=== PATIENT | male | born 1955 | race Caucasian/White ===

== ENCOUNTER → 2017-07-02 12:27 | Outpatient (CLI) | payer MEDICARE, SELFPAY ==
--- NOTE | 2017-07-02 12:29 | CT_ITS ---
STUDY: CT LEFT SHOULDER REASON FOR EXAM: Male, 62 years old. Chronic left shoulder pain. RADIATION DOSAGE (If Supplied By Facility): CTDIvol = ( 13.78 ) mGy, DLP = ( 269.48 ) mGycm TECHNIQUE: The patient was scanned in a multi detector CT scanner. High resolution transaxial imaging was performed following dilute intra-articular contrast material injection. Sagittal and coronal images were reconstructed. Individualized dose optimization techniques were used for this CT. COMPARISON: Comparison is made with prior examination dated March 28, 2016. FINDINGS: There is a marked degree of degenerative osteoarthritis of the glenohumeral joint with degenerative spurring especially along the inferior medial aspect of the humerus as well as the inferior aspect of the glenoid. 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 This is essentially unchanged. There is evidence of full thickness tear of the rotator cuff with contrast seen in the surrounding soft tissues. Normal coracoid process. Normal visualized muscles and soft tissue structures. CT/Extremity Upper WITH Contrast IMPRESSION: Stable appearance of the glenohumeral joint with significant degenerative changes and subchondral geodes. Evidence of full thickness tear of the rotator cuff. Electronically Signed: Case Moeller MD at 13:45 EDT Tel [phone], Service support ,
--- NOTE | 2017-07-02 12:33 | CT_ITS ---
STUDY: CT LEFT SHOULDER REASON FOR EXAM: Male, 62 years old. Chronic left shoulder pain. RADIATION DOSAGE (If Supplied By Facility): CTDIvol = ( 13.78 ) mGy, DLP = ( 269.48 ) mGycm TECHNIQUE: The patient was scanned in a multi detector CT scanner. High resolution transaxial imaging was performed following dilute intra-articular contrast material injection. Sagittal and coronal images were reconstructed. Individualized dose optimization techniques were used for this CT. COMPARISON: Comparison is made with prior examination dated March 28, 2016. FINDINGS: There is a marked degree of degenerative osteoarthritis of the glenohumeral joint with degenerative spurring especially along the inferior medial aspect of the humerus as well as the inferior aspect of the glenoid. 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 This is essentially unchanged. There is evidence of full thickness tear of the rotator cuff with contrast seen in the surrounding soft tissues. Normal coracoid process. Normal visualized muscles and soft tissue structures. CT/Coronals Sag Multi Obl 3-D Rec IMPRESSION: Stable appearance of the glenohumeral joint with significant degenerative changes and subchondral geodes. Evidence of full thickness tear of the rotator cuff. Electronically Signed: Case Moeller MD at 13:45 EDT Tel [phone], Service support ,
--- NOTE | 2017-07-02 12:40 | RAD_ITS ---
CLINICAL HISTORY: Male, 62 years old. Chronic left shoulder pain. PROCEDURE: ARTHROGRAM - LEFT SHOULDER CONSENT: The procedure as well as the benefits and possible complications including infection and bleeding were explained to the patient. Informed consent was obtained. FLUOROSCOPY TIME (if supplied): (1:06) minutes/seconds Injection Information: 10 cc of dilute MRI contrast. Number of images obtained: 3 TECHNIQUE: (All elements of maximal sterile barrier technique followed, including US elements as applicable) The patient was in the supine position. The overlying skin was prepped and draped in the usual sterile fashion. Following local anesthetic application and under direct fluoroscopic guidance, a 22-gauge spinal needle was placed into the left shoulder joint. 2 cc of Isovue 300 was injected for confirmation. Following this, 10 cc of dilute MRI contrast was injected. There is deformity of the humeral head with a degenerative spur formation. Marked degree of osteoarthritis. RAD/Arthrogram Shoulder IMPRESSION: Left shoulder arthrogram for CT scan examination. The patient tolerated the procedure well. Electronically Signed: Case Moeller MD at 14:57 EDT Tel [phone], Service support ,
[2017-07-02 14:52] LABS: Hematocrit 40.1 % (40-54); Hemoglobin 14.4 g/dl (13.0-16.5); Mean Corp Hgb Conc 35.9 g/gl (32-36); Mean Corpuscular Volume 91.8 fL (80-94); Mean Platelet Vol. 9.7 fl (6.2-12.0); Platelet Count 205 K/mm3 (150-450); RBC Distribution Width SD 39.8 fl (35.1-43.9); Red Blood Count 4.37 M/mm3 (4.6-6.2); White Blood Count 6.3 K/mm3 (4.4-11.0)
[2017-07-02 14:53] LABS: Scan Indicated on CBC? Y/N NO
[2017-07-02 15:17] LABS: Valproic Acid (Depakene) Level 105 ug/mL (50-100)
[2017-07-02 15:25] LABS: AST(SGOT) 43 U/L (15-37); Alanine Aminotransfer ALT/SGPT 19 U/L (16-61); Albumin, Serum 3.6 g/dL (3.2-5.0); Alkaline Phosphatase 99 U/L (45-117); Anion Gap 8 (5-15); BUN 11 mg/dL (7-18); BUN/Creat Ratio 12.6 RATIO (10-20); Calcium,Total 9.1 mg/dL (8.5-10.1); Chloride 96 mmol/L (98-107); Creatinine, Serum 0.87 mg/dL (0.70-1.30); EST Glomerular Filtration Rate 94 mL/min (>60); Est Glom Filt Rate - Afr Amer 113 mL/min (>60); Globulin 3.5 g/dL (2.2-4.2); Glucose 84 mg/dL (74-106); Potassium 4.4 mmol/L (3.5-5.1); Protein, Total 7.1 g/dL (6.4-8.2); Sodium Level 129 mmol/L (136-145); Thyroid Stim Hormone (TSH) 0.29 uIU/mL (0.358-3.74)
== END ==
PROVIDERS: Psychiatry & Neurology Psychiatry; Family Provider Family Medicine; PCP Family Medicine; Visit Provider Orthopaedic Surgery
DX: M19.012 Primary osteoarthritis, left shoulder (principal); Z79.899 Other long term (current) drug therapy
CPT/HCPCS: 23350; 36415; 73040; 73201; 76377; 80053; 80164; 84443; 85027; A9577; Q9967

== ENCOUNTER 2017-07-03 15:43 | Emergency (ER) | payer MEDICARE, SELFPAY ==
[2017-07-03 15:46] VITALS: BP 146/102; PULSE 88; RESP 16; TEMP 36.6; O2SAT 98; BMI 27.0
--- NOTE | 2017-07-03 15:57 | EKG12_ITS ---
Test Reason : MEDICAL CLEARANCE Blood Pressure : / mmHG Vent. Rate : 082 BPM Atrial Rate : 082 BPM P-R Int : 156 ms QRS Dur : 098 ms QT Int : 360 ms P-R-T Axes : 038 -16 029 degrees QTc Int : 420 ms Normal sinus rhythm Normal ECG Confirmed by JUAN MORRIS, LULY ([id number]), editorial clerk MEGA SALVADOR ([id number]) on 07/07/2017 2:16:31 PM Referred By: Matt Romero Confirmed By:LULY MARTINEZ MD
--- NOTE | 2017-07-03 15:58 | ED.VISSUMM ---
- ER Visit Summary Date of Service: 07/03/17 Chief Complaint: Suicidal thoughts History of Present Illness: The patient is a 62 M presents to the emergency department with suicidal thoughts. Patient has a history of depression and prior traumatic brain injury. He currently resides in a penitentiary. He states that 1 of the staff members has been telling him frequently but no one else there likes him. They have been isolating him from the group. He states this is making him depressed. He states I just want to put a gun in my mouth and pull the trigger. Patient does have long-standing history of depression. He has been hospitalized for both suicidal and homicidal thoughts before. He denies any other current systemic symptoms. He denies any drug or alcohol use. Physical Examination: Vital signs reviewed General: Well-nourished, well-developed Head: Normocephalic, atraumatic Eyes: Pupils equal and reactive, extraocular muscles intact Neck, supple, no lymphadenopathy Heart: Regular rate and rhythm Respiratory: No distress, clear bilaterally Abdomen: Soft, nontender, nondistended, no peritoneal signs Back: Nontender Extremities: Nontender, no edema, no cords Skin: Normal color no rash Neuro: Alert and oriented, no focal or lateralizing deficits Psychiatric: Poor judgment, poor insight, suicidal thoughts, no delusions or hallucinations Test Results: [] Emergency Department Course and Treatment: The patient was compliant on arrival. He did not require any medications. Screening labs are obtained. His Depakote level is mildly supratherapeutic, but he has no symptoms of Depakote toxicity. Labs are obtained and are unremarkable. There is no evidence of intoxication. The patient will undergo crisis evaluation because of a suicidal ideation. Disposition is currently pending. Treatment Plan: [] Disposition: Per crisis Impression: 1. Suicidal ideation This note was generated with [employer] dictation software. It may contain incorrect words, spelling, and punctuation that were not noted in review of the chart prior to signing ED Disposition - Plan for ED Patient: Chief Complaint: Suicidal Referrals: Gume Llanes MD [Primary Care Provider] -
--- NOTE | 2017-07-03 16:27 | ED.RN ---
PT BELONGS. GLASSES ON. UNDERWEAR ON. BEIGE PANTS ONE ANKLE HEIGHT BOOT FOR LT FOOT. ONE SLIPPER FOR RT FOOT. BUTTON UP SHIRT, YELLOW WITH MULTIPLE COLORS. WHITE REESE. WHITE SOCKS SILVER WATCH BROWN BELT.
[2017-07-03 16:48] LABS: Anion Gap 9 (5-15); BUN 8 mg/dL (7-18); BUN/Creat Ratio 11.3 RATIO (10-20); Calcium,Total 8.9 mg/dL (8.5-10.1); Chloride 97 mmol/L (98-107); EST Glomerular Filtration Rate 120 mL/min (>60); Est Glom Filt Rate - Afr Amer 145 mL/min (>60); Estimated Creatinine Clearance 115.04 ml/min; Glucose 83 mg/dL (74-106); Potassium 4.2 mmol/L (3.5-5.1); Sodium Level 130 mmol/L (136-145)
[2017-07-03 16:58] LABS: Absolute Lymphocyte Count 1.36 X10^3/ul (0.83-4.51); Absolute Neutrophil Count 3.7 X10^3/uL (2.0-7.7); Basophil# 0.03 X10^3/uL; Basophil% 0.5 % (0-1); Eosinophil# 0.08 X10^3/uL; Eosinophils% 1.3 % (0-5); Hematocrit 40.5 % (40-54); Hemoglobin 14.1 g/dl (13.0-16.5); Lymphocyte # 1.36 X10^3/ul (4.0); Lymphocyte % 22.4 % (19-41); Mean Corp Hgb Conc 34.8 g/gl (32-36); Mean Corpuscular Hgb 31.7 pg (27.0-32.0); Mean Platelet Vol. 9.3 fl (6.2-12.0); Monocyte# 0.84 X10^3/uL; Monocyte% 13.9 % (0-10); Neutrophil # 3.74 X10^3/uL (2.7-7.7); Neutrophil % 61.7 % (47-70); Platelet Count 179 K/mm3 (150-450); RBC Distribution Width CV 12.2 % (11.6-14.6); RBC Distribution Width SD 41.3 fl (35.1-43.9); Red Blood Count 4.45 M/mm3 (4.6-6.2); White Blood Count 6.1 K/mm3 (4.4-11.0)
[2017-07-03 17:04] LABS: Alcohol, Blood (Medical)-Serum < 3.0 mg/dL; Valproic Acid (Depakene) Level 110 ug/mL (50-100)
[2017-07-03 17:18] LABS: POSITIVE COUNT NO; POSITIVE DIFFERENTIAL NO; POSITIVE MORPHOLOGY NO
[2017-07-03 17:43] VITALS: RESP 16
[2017-07-03 17:52] LABS: Amphetamine Urine VISTA NEGATIVE (<1000 ng/mL); Barbiturate Urine VISTA NEGATIVE (< 200 ng/mL); Benzodiazepine Urine VISTA NEGATIVE (< 200 ng/mL); Cocaine Urine VISTA NEGATIVE (< 300 ng/mL); Ecstacy Urine VISTA NEGATIVE (< 500 ng/mL); Methadone Urine VISTA NEGATIVE (< 300 ng/mL); PCP Urine VISTA NEGATIVE (< 25 ng/mL); THC Urine VISTA NEGATIVE (< 50 ng/mL); Vista UDS pH Range 6
[2017-07-03 18:00] VITALS: RESP 16
[2017-07-03 19:00] VITALS: RESP 16
[2017-07-03 21:09] VITALS: BP 163/93; PULSE 85; RESP 18; O2SAT 98
[2017-07-03] MEDS: Divalproex (ER) 500 MG Tablet PO (21:33)
[2017-07-03] MEDS: Imipramine HCl 25 MG Tablet 75 MG PO (21:33)
[2017-07-03] MEDS: OLANZapine 10 MG Tablet 40 MG PO (21:33)
[2017-07-03] MEDS: QUEtiapine 100 MG Tablet PO (21:34)
[2017-07-03 22:48] VITALS: PULSE 81; RESP 18; O2SAT 97
[2017-07-03 23:49] LABS: Lipase 95 U/L (73-393)
[2017-07-03 23:55] LABS: AST(SGOT) 33 U/L (15-37); Alanine Aminotransfer ALT/SGPT 16 U/L (16-61); Alkaline Phosphatase 108 U/L (45-117); Bilirubin, Direct 0.16 mg/dL (0.00-0.30); Globulin 3.4 g/dL (2.2-4.2); Protein, Total 7.4 g/dL (6.4-8.2)
[2017-07-04] VITALS (13 sets, daily range): BP systolic 120–138; BP diastolic 66–99; PULSE 78–90; RESP 16–18; O2SAT 96–100
[2017-07-04] MEDS: Levothyroxine 125 MCG Tablet PO (07:02)
[2017-07-04] MEDS: amLODIPine 10 MG Tablet PO (07:43)
[2017-07-04] MEDS: QUEtiapine 100 MG Tablet PO ×2 (07:43→14:29)
[2017-07-04] MEDS: Lisinopril 10 MG Tablet PO (07:43)
[2017-07-04] MEDS: Aspirin 81 MG TAB.CHEW PO (07:44)
[2017-07-04] MEDS: Divalproex Sodium 250 MG Tablet 500 MG PO (07:44)
--- NOTE | 2017-07-04 08:03 | ED.RN ---
PER ENRIQUE WITH CRISIS; [facility] SCHOOL OFFICE ASSISTANT NEEDS TO REVIEW THE CHART; THEY HAVE NO IDEA WHEN HE WILL BE IN; ENRIQUE SAYS SHE WILL CONTINUE TO CHECK IN WITH FACILITY
--- NOTE | 2017-07-04 10:33 | ED.RN ---
PER FARHAT WITH CRISIS; NOTHING NEW TO REPORT. STILL WAITING ON THE WHITE KID BUFFER TO REVIEW THE PTS CHART
--- NOTE | 2017-07-04 13:54 | ED.RN ---
KOREY WITH CRISIS IS GOING TO CALL [facility] AND SEE IF THERE IS ANY UPDATED INFORMATION
--- NOTE | 2017-07-04 15:01 | ED.RN ---
PER MILAD WITH CRISIS; HAS THE PACKET FOR THE PT AND IS REVIEWING IT AT THIS TIME
--- NOTE | 2017-07-04 16:22 | ED.RN ---
PER MILAD WITH CRISIS; PT WAS ACCEPTED TO [facility]; THEY WILL CALL US TONIGHT WITH A BED ASSIGNMENT
== END 2017-07-04 18:05 ==
PROVIDERS: Emergency Provider Emergency Medicine; Family Provider Family Medicine; PCP Family Medicine
DX: R45.851 Suicidal ideations (principal); F32.9 Major depressive disorder, single episode, unspecified; Z87.820 Personal history of traumatic brain injury; Z87.891 Personal history of nicotine dependence; Z79.82 Long term (current) use of aspirin; Z79.899 Other long term (current) drug therapy
CPT/HCPCS: 80048; 80076; 80164; 80307; 80320; 83690; 85025; 93005; 99285; G0480

== ENCOUNTER 2017-07-21 14:31 | Emergency (ER) | payer MEDICARE, SELFPAY ==
[2017-07-21 14:32] VITALS: BP 141/81; PULSE 98; RESP 16; TEMP 36.8; O2SAT 97; BMI 26.0
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
[2017-07-21 15:09] LABS: Absolute Lymphocyte Count 1.37 X10^3/ul (0.83-4.51); Absolute Neutrophil Count 5.5 X10^3/uL (2.0-7.7); Basophil# 0.03 X10^3/uL; Basophil% 0.4 % (0-1); Eosinophil# 0.04 X10^3/uL; Eosinophils% 0.5 % (0-5); Hematocrit 40.2 % (40-54); Hemoglobin 14.2 g/dl (13.0-16.5); Lymphocyte # 1.37 X10^3/ul (4.0); Lymphocyte % 17.7 % (19-41); Mean Corp Hgb Conc 35.3 g/gl (32-36); Mean Corpuscular Hgb 31.6 pg (27.0-32.0); Mean Corpuscular Volume 89.5 fL (80-94); Mean Platelet Vol. 8.8 fl (6.2-12.0); Monocyte# 0.77 X10^3/uL; Monocyte% 9.9 % (0-10); Neutrophil # 5.53 X10^3/uL (2.7-7.7); Neutrophil % 71.4 % (47-70); Platelet Count 198 K/mm3 (150-450); RBC Distribution Width CV 12.3 % (11.6-14.6); RBC Distribution Width SD 39.8 fl (35.1-43.9); Red Blood Count 4.49 M/mm3 (4.6-6.2); White Blood Count 7.8 K/mm3 (4.4-11.0)
[2017-07-21 15:10] LABS: POSITIVE COUNT NO; POSITIVE DIFFERENTIAL NO; POSITIVE MORPHOLOGY NO
[2017-07-21 15:25] LABS: AST(SGOT) 24 U/L (15-37); Alanine Aminotransfer ALT/SGPT 20 U/L (16-61); Albumin, Serum 3.8 g/dL (3.2-5.0); Alkaline Phosphatase 111 U/L (45-117); Anion Gap 7 (5-15); BUN 7 mg/dL (7-18); BUN/Creat Ratio 10.3 RATIO (10-20); Calcium,Total 9.2 mg/dL (8.5-10.1); Chloride 98 mmol/L (98-107); Creatinine, Serum 0.68 mg/dL (0.70-1.30); EST Glomerular Filtration Rate 125 mL/min (>60); Est Glom Filt Rate - Afr Amer 151 mL/min (>60); Estimated Creatinine Clearance 118.43 ml/min; Globulin 3.7 g/dL (2.2-4.2); Glucose 92 mg/dL (74-106); Potassium 4.1 mmol/L (3.5-5.1); Protein, Total 7.5 g/dL (6.4-8.2); Sodium Level 128 mmol/L (136-145); Valproic Acid (Depakene) Level 87 ug/mL (50-100)
[2017-07-21 15:33] LABS: Amphetamine Urine VISTA NEGATIVE (<1000 ng/mL); Barbiturate Urine VISTA NEGATIVE (< 200 ng/mL); Benzodiazepine Urine VISTA NEGATIVE (< 200 ng/mL); Cocaine Urine VISTA NEGATIVE (< 300 ng/mL); Ecstacy Urine VISTA NEGATIVE (< 500 ng/mL); Methadone Urine VISTA NEGATIVE (< 300 ng/mL); PCP Urine VISTA NEGATIVE (< 25 ng/mL); THC Urine VISTA NEGATIVE (< 50 ng/mL); Vista UDS pH Range 7
[2017-07-21 15:45] VITALS: RESP 14
--- NOTE | 2017-07-21 15:48 | ED.RN ---
pt arrives to ed with the following belongings: blue jeans brown belt white t shirt glasses brown wallet red flip cell phone silver watch brown work boot black slipper black comb package of cigarettes cell phone racing mechanic 34$ daigle black boxer briefs. pt daigle, wallet and watch bagged, labeled and sent to gum machine operator.
--- NOTE | 2017-07-21 15:54 | ED.VISSUMM ---
- ER Visit Summary Date of Service: 07/21/17 Chief Complaint: Suicidal ideation History of Present Illness: The patient is a [address] Llanes and Dr. Barriga. He reports that he has suicidal thoughts that began today. Is planning to overdose or cut his wrists. Patient reports that he was an inpatient at [facility] in 6-7 days ago they stopped his imipramine and that he has felt worse since that time. Physical Examination: Vitals: Stable. Afebrile. General: Well-nourished and well-developed. Head: Normocephalic atraumatic. Neck: Supple, no lymphadenopathy. No JVD. Nontender. Cardiovascular: Regular rate and rhythm. No murmurs. Respiratory: No respiratory distress. Clear to auscultation bilaterally. Abdominal: Soft, nontender, nondistended, normal bowel sounds. No guarding, rebound, or peritoneal signs. Back: Nontender. Extremities: Nontender, no edema. Skin: Normal color, no rash. Neurologic: Alert and oriented ?3. Cranial nerves II through XII are intact. Normal strength and sensation. Mental status exam: Patient appears their stated age. Good posture and grooming. Good eye contact. Normal rate, volume, and latency of speech. No homicidal ideation. No auditory or visual hallucinations. Flow of thought is logical. Insight and judgment is fair. Test Results: CBC is marked for segment neutrophils of 71 lymphocytes 18. Chem-7 is more for sodium 128 and creatinine 0.68. His sodium has ranged between 129-133 since 2016. LFTs are normal. Depakote level is 87. Tox screen alcohol are negative. Emergency Department Course and Treatment: Patient is resting comfortably without complaint. Treatment Plan: Patient will be seen by the counseling center. Disposition: [] Impression: [] This note was generated with [employer] dictation software. It may contain incorrect words, spelling, and punctuation that were not noted in review of the chart prior to signing ED Disposition - Plan for ED Patient: Chief Complaint: Suicidal Referrals: Gume Llanes MD [Primary Care Provider] -
--- NOTE | 2017-07-21 16:44 | ED.RN ---
PER FARHAT WITH CRISIS; SHE IS HANDING OFF ALL OF THE INFORMATION ON PT TO BRAYAN WHO WILL TAKE OVER THE CASE; PT HAS ALREADY BEEN ASSESSED AND THEY JUST NEED TO FIND PLACEMENT; BRAYAN CAN DO ALL THIS FROM THE OFFICE
--- NOTE | 2017-07-21 17:06 | ED.RN ---
called dietary for meal tray.
[2017-07-21 17:07] VITALS: BP 130/86; PULSE 92; RESP 17; O2SAT 98
--- NOTE | 2017-07-21 17:39 | EKG12_ITS ---
Test Reason : MEDICAL CLEARANCE Blood Pressure : / mmHG Vent. Rate : 094 BPM Atrial Rate : 094 BPM P-R Int : 150 ms QRS Dur : 094 ms QT Int : 360 ms P-R-T Axes : 040 -18 020 degrees QTc Int : 450 ms Normal sinus rhythm Septal infarct , age undetermined , cannot be excluded Abnormal ECG Confirmed by MANISH MORRIS, ZENAIDA ([id number]), advertising editor MEGA SALVADOR ([id number]) on 07/24/2017 12:55:22 PM Referred By: ALEJANDRO Confirmed By:ZENAIDA HAMMOND MD
--- NOTE | 2017-07-21 17:45 | ED.RN ---
PER BRAYAN WITH CRISIS; REFERRING PT TO [facility]; NEEDS AN EKG; BRENDA PUT THE ORDER IN AND I CALLED RESP
--- NOTE | 2017-07-21 18:20 | ED.RN ---
PT REQUESTED THAT THIS NURSE PLEASE HIS RED CELL PHONE BACK WITH HIS PERSONAL BELONGINGS
--- NOTE | 2017-07-21 18:27 | ED.RN ---
PT REQUESTING HIS RED CELL PHONE BE RETURNED TO HIM
[2017-07-21 18:57] VITALS: BP 137/86; PULSE 86; RESP 17; O2SAT 98
--- NOTE | 2017-07-21 20:04 | NURSING ---
RECEIVED A CALL FROM BRAYAN CELESTIN, [facility] WILL PLACE THIS PT UP FOR ADMINISTRATIVE REVIEW IN THE MORNING.
[2017-07-21 21:17] VITALS: RESP 18
[2017-07-21 22:40] LABS: Thyroid Stim Hormone (TSH) 0.34 uIU/mL (0.358-3.74)
[2017-07-21 22:57] VITALS: BP 114/82; PULSE 79; RESP 18; O2SAT 96
[2017-07-21] MEDS: Imipramine HCl 25 MG Tablet 50 MG PO (23:00)
[2017-07-21] MEDS: Divalproex (ER) 500 MG Tablet 1000 MG PO (23:00)
[2017-07-21] MEDS: QUEtiapine 100 MG Tablet 200 MG PO (23:01)
--- NOTE | 2017-07-21 23:42 | ED.RN ---
PATIENT UPSET HE DID NOT GET HIS ZYPREXA MEDICATION. ACCORDING TO MEDICATION HX HE HAS NOT BEEN ORDERED MEDICATION. SPOKE WITH DR. ALLEN. MEDICATION TO BE ORDERED AND ADDED TO MEDICATION LIST
[2017-07-22] VITALS (14 sets, daily range): BP systolic 124–142; BP diastolic 79–91; PULSE 78–100; RESP 14–18; O2SAT 96–100
[2017-07-22] MEDS: OLANZapine 10 MG Tablet 20 MG PO (00:22)
[2017-07-22] MEDS: Acetaminophen 500 MG Tablet PO ×2 (05:47→12:31)
[2017-07-22] MEDS: Levothyroxine 125 MCG Tablet PO (05:48)
[2017-07-22] MEDS: Lisinopril 10 MG Tablet PO (09:05)
[2017-07-22] MEDS: Divalproex (ER) 500 MG Tablet 1500 MG PO (09:05)
[2017-07-22] MEDS: amLODIPine 10 MG Tablet PO (09:06)
[2017-07-22] MEDS: Aspirin 81 MG TAB.CHEW PO (09:07)
--- NOTE | 2017-07-22 09:12 | NURSING ---
ENRIQUE, CRISIS, HERE
--- NOTE | 2017-07-22 13:49 | ED.DEP ---
ED Disposition - Plan for ED Patient: Chief Complaint: Suicidal Instructions: ED Depression Referrals: Gume Llanes MD [Primary Care Provider] - Counseling,Center [GROUP OF PHYSICIANS] -
--- NOTE | 2017-07-22 14:15 | ED.RN ---
pt valuables retrieved from safe and verified with him this nurse and vandana from security. all agreed to contnts. pt signed for them and has possession of them at this time. pt dc with safety plan in place. taxi called for him and waiting in waiting area for taxi
== END 2017-07-22 14:14 | disposition home or self-care (01) ==
PROVIDERS: Emergency Provider Emergency Medicine; Family Provider Family Medicine; PCP Family Medicine
DX: R45.851 Suicidal ideations (principal); F32.9 Major depressive disorder, single episode, unspecified; I10 Essential (primary) hypertension; Z72.0 Tobacco use; Z79.82 Long term (current) use of aspirin; Z79.899 Other long term (current) drug therapy
CPT/HCPCS: 36415; 80053; 80164; 80307; 80320; 84443; 85025; 93005; 99284; G0480

== ENCOUNTER 2017-10-02 18:11 | Emergency (ER) | payer MEDICARE, SELFPAY ==
[2017-10-02 18:17] VITALS: BP 113/75; PULSE 62; RESP 15; TEMP 36.4; O2SAT 98; BMI 24.0
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
--- NOTE | 2017-10-02 19:10 | ED.DCSUM_ITS ---
- ER Visit Summary Date of Service: 10/02/17 Chief Complaint: Suicidal ideas History of Present Illness: The patient is a 62 M 7 presents to the emergency department with suicidal thoughts. Patient is a history of depression and schizoaffective disorder. He states that over the past few days, he has been having intrusive thoughts about wanting to kill himself or hurt someone else. He denies any specific plan. Denies any fevers or chills. He states he has been compliant with all of his medications. He does have history of prior attempt. Denies any access to weapons or drug use. Physical Examination: Vital signs reviewed General: Well-nourished, well-developed Head: Normocephalic, atraumatic Eyes: Pupils equal and reactive, extraocular muscles intact Neck, supple, no lymphadenopathy Heart: Regular rate and rhythm Respiratory: No distress, clear bilaterally Abdomen: Soft, nontender, nondistended, no peritoneal signs Back: Nontender Extremities: Nontender, no edema, no cords Skin: Normal color no rash Neuro: Alert and oriented, no focal or lateralizing deficits Test Results: [] Emergency Department Course and Treatment: The patient is actually been seen here multiple times for similar complaints. We were able to discuss his care with his guardian who states the patient is very manipulative and does not like his current custodial situation. They did state that he will state that he is going to hurt himself so he can get a vacation from where he is. Patient has no plan of suicide. His metabolic screen exam is unremarkable. The guardian wants him to be sent back to his custodial. The patient did contract for safety. He will be discharged. Treatment Plan: [] Disposition: Discharge Impression: Depression This note was generated with [employer] dictation software. It may contain incorrect words, spelling, and punctuation that were not noted in review of the chart prior to signing ED Disposition - Plan for ED Patient: Chief Complaint: Suicidal Instructions: ED Depression Referrals: Gume Llanes MD [Primary Care Provider] -
[2017-10-02 19:21] VITALS: BP 146/90; PULSE 79; RESP 17; O2SAT 97
[2017-10-02 19:45] LABS: Absolute Lymphocyte Count 1.12 X10^3/ul (0.83-4.51); Absolute Neutrophil Count 2.3 X10^3/uL (2.0-7.7); Basophil# 0.03 X10^3/uL; Basophil% 0.7 % (0-1); Eosinophil# 0.13 X10^3/uL; Eosinophils% 3.1 % (0-5); Hematocrit 39.2 % (40-54); Hemoglobin 13.6 g/dl (13.0-16.5); Lymphocyte # 1.12 X10^3/ul (4.0); Lymphocyte % 27.1 % (19-41); Mean Corp Hgb Conc 34.7 g/gl (32-36); Mean Corpuscular Hgb 31.9 pg (27.0-32.0); Mean Corpuscular Volume 91.8 fL (80-94); Mean Platelet Vol. 8.7 fl (6.2-12.0); Monocyte# 0.58 X10^3/uL; Neutrophil # 2.26 X10^3/uL (2.7-7.7); Neutrophil % 54.9 % (47-70); Platelet Count 178 K/mm3 (150-450); RBC Distribution Width CV 13.2 % (11.6-14.6); Red Blood Count 4.27 M/mm3 (4.6-6.2); White Blood Count 4.1 K/mm3 (4.4-11.0)
[2017-10-02 19:47] LABS: POSITIVE COUNT NO; POSITIVE DIFFERENTIAL NO; POSITIVE MORPHOLOGY NO
[2017-10-02 20:07] LABS: Anion Gap 10 (5-15); BUN 7 mg/dL (7-18); BUN/Creat Ratio 10.5 RATIO (10-20); Calcium,Total 8.8 mg/dL (8.5-10.1); Chloride 99 mmol/L (98-107); Creatinine, Serum 0.67 mg/dL (0.70-1.30); EST Glomerular Filtration Rate 127 mL/min (>60); Est Glom Filt Rate - Afr Amer 154 mL/min (>60); Estimated Creatinine Clearance 131.21 ml/min; Glucose 106 mg/dL (74-106); Potassium 3.7 mmol/L (3.5-5.1); Sodium Level 135 mmol/L (136-145)
[2017-10-02 20:15] LABS: Alcohol, Blood (Medical)-Serum < 3.0 mg/dL
[2017-10-02 20:27] LABS: Valproic Acid (Depakene) Level 70 ug/mL (50-100)
[2017-10-02 20:38] LABS: Amphetamine Urine VISTA NEGATIVE (<1000 ng/mL); Barbiturate Urine VISTA NEGATIVE (< 200 ng/mL); Benzodiazepine Urine VISTA NEGATIVE (< 200 ng/mL); Cocaine Urine VISTA NEGATIVE (< 300 ng/mL); Ecstacy Urine VISTA NEGATIVE (< 500 ng/mL); Methadone Urine VISTA NEGATIVE (< 300 ng/mL); PCP Urine VISTA NEGATIVE (< 25 ng/mL); THC Urine VISTA NEGATIVE (< 50 ng/mL); Vista UDS pH Range 7
[2017-10-02] MEDS: Divalproex (ER) 500 MG Tablet 1500 MG PO (21:07)
[2017-10-02] MEDS: OLANZapine 10 MG Tablet 40 MG PO (21:08)
[2017-10-02] MEDS: QUEtiapine 100 MG Tablet 400 MG PO (21:08)
[2017-10-02] MEDS: Docusate Sodium 100 MG Capsule PO (21:08)
[2017-10-02] MEDS: Imipramine HCl 25 MG Tablet 75 MG PO (21:08)
[2017-10-02 21:12] VITALS: BP 140/87; PULSE 78; RESP 18; O2SAT 98
[2017-10-02 23:07] VITALS: BP 118/73; PULSE 79; RESP 16; O2SAT 97
[2017-10-03 00:37] VITALS: BP 120/81; PULSE 72; RESP 18; O2SAT 97
--- NOTE | 2017-10-03 00:37 | NURSING ---
SENT HOME WITH A SAFETY PLAN. JOSEPH FROM CRISIS IS GOING TO TAKE THE PT BACK TO [facility] BECAUSE WE WERE UNABLE TO FIND A TAXI FOR HIM. PT UNDERSTANDS THE SAFETY PLAN AND AGREES WITH IT.
== END 2017-10-03 00:38 | disposition skilled nursing facility (03) ==
LOC: ED 19:24
PROVIDERS: Emergency Provider Emergency Medicine; Family Provider Family Medicine; PCP Family Medicine
DX: F32.9 Major depressive disorder, single episode, unspecified (principal); F25.9 Schizoaffective disorder, unspecified; Z79.82 Long term (current) use of aspirin; Z79.899 Other long term (current) drug therapy
CPT/HCPCS: 80048; 80164; 80307; 80320; 85025; 99284; G0480

== ENCOUNTER 2017-10-04 14:14 | Emergency (ER) | payer MEDICARE, SELFPAY ==
[2017-10-04 14:14] VITALS: BP 140/88; PULSE 100; RESP 16; TEMP 37.3; O2SAT 97; BMI 25.2
--- NOTE | 2017-10-04 15:03 | ED.DCSUM_ITS ---
- ER Visit Summary Date of Service: 10/04/17 Chief Complaint: Suicidal, abnormal behavior History of Present Illness: The patient is a 62 M with history of bipolar disorder and prior traumatic brain injury presents to the emergency department by police. Staff at his prison apparently called police because the patient was making thoughts of self-harm. He is making threats to harm himself. Patient was actually seen here 2 days ago by myself. He was evaluated by crisis. We had spoken to his guardian he said that the patient has chronic suicidality and has never had actual self-harm. The patient states that they are just trying to get me out of the prison. He states I never said I was going to harm myself. Patient does seem to have some flight of ideas. Physical Examination: Vital signs reviewed General: Well-nourished, well-developed Head: Normocephalic, atraumatic Eyes: Pupils equal and reactive, extraocular muscles intact Neck, supple, no lymphadenopathy Heart: Regular rate and rhythm Respiratory: No distress, clear bilaterally Abdomen: Soft, nontender, nondistended, no peritoneal signs Back: Nontender Extremities: Nontender, no edema, no cords Skin: Normal color no rash Neuro: Alert and oriented, no focal or lateralizing deficits Test Results: [] Emergency Department Course and Treatment: The patient frankly denies being suicidal. Medical clearance was performed. His labs were supple. The patient was evaluated by crisis who was able to talk to his guardian and his prison. The patient is not suicidal. He has no thoughts of self-harm or harm anyone else. He was discharged back to his facility. Treatment Plan: [] Disposition: Discharge Impression: 1. Behavioral disturbance This note was generated with [employer] dictation software. It may contain incorrect words, spelling, and punctuation that were not noted in review of the chart prior to signing ED Disposition - Plan for ED Patient: Chief Complaint: Suicidal Instructions: ED Depression Referrals: Gume Llanes MD [Primary Care Provider] -
[2017-10-04 15:50] VITALS: RESP 16
[2017-10-04 15:51] LABS: Amphetamine Urine VISTA NEGATIVE (<1000 ng/mL); Barbiturate Urine VISTA NEGATIVE (< 200 ng/mL); Benzodiazepine Urine VISTA NEGATIVE (< 200 ng/mL); Cocaine Urine VISTA NEGATIVE (< 300 ng/mL); Ecstacy Urine VISTA NEGATIVE (< 500 ng/mL); Methadone Urine VISTA NEGATIVE (< 300 ng/mL); PCP Urine VISTA NEGATIVE (< 25 ng/mL); THC Urine VISTA NEGATIVE (< 50 ng/mL); Vista UDS pH Range 7
[2017-10-04 15:51] LABS: Absolute Lymphocyte Count 0.92 X10^3/ul (0.83-4.51); Absolute Neutrophil Count 2.8 X10^3/uL (2.0-7.7); Basophil# 0.04 X10^3/uL; Basophil% 0.9 % (0-1); Eosinophil# 0.08 X10^3/uL; Eosinophils% 1.8 % (0-5); Hematocrit 39.8 % (40-54); Hemoglobin 13.9 g/dl (13.0-16.5); Lymphocyte # 0.92 X10^3/ul (4.0); Lymphocyte % 20.9 % (19-41); Mean Corp Hgb Conc 34.9 g/gl (32-36); Mean Corpuscular Hgb 32.1 pg (27.0-32.0); Mean Corpuscular Volume 91.9 fL (80-94); Mean Platelet Vol. 8.8 fl (6.2-12.0); Monocyte# 0.54 X10^3/uL; Monocyte% 12.3 % (0-10); Neutrophil # 2.81 X10^3/uL (2.7-7.7); Neutrophil % 63.9 % (47-70); POSITIVE COUNT NO; POSITIVE DIFFERENTIAL NO; POSITIVE MORPHOLOGY NO; Platelet Count 175 K/mm3 (150-450); RBC Distribution Width CV 12.9 % (11.6-14.6); RBC Distribution Width SD 43.8 fl (35.1-43.9); Red Blood Count 4.33 M/mm3 (4.6-6.2); White Blood Count 4.4 K/mm3 (4.4-11.0)
[2017-10-04 15:56] LABS: Anion Gap 8 (5-15); BUN 7 mg/dL (7-18); BUN/Creat Ratio 9.4 RATIO (10-20); Chloride 94 mmol/L (98-107); Creatinine, Serum 0.74 mg/dL (0.70-1.30); EST Glomerular Filtration Rate 113 mL/min (>60); Est Glom Filt Rate - Afr Amer 137 mL/min (>60); Estimated Creatinine Clearance 108.82 ml/min; Glucose 79 mg/dL (74-106); Sodium Level 129 mmol/L (136-145)
[2017-10-04 16:19] LABS: Alcohol, Blood (Medical)-Serum < 3.0 mg/dL
[2017-10-04 16:25] LABS: Valproic Acid (Depakene) Level 100 ug/mL (50-100)
[2017-10-04 17:19] VITALS: RESP 16
[2017-10-04 19:14] VITALS: BP 118/84; PULSE 66; RESP 18; O2SAT 99
--- NOTE | 2017-10-04 19:27 | ED.RN ---
This nurse was called to patient's room and requested Dr. Poe to look at his right great toe. There is a small round wound on the posterior side of his great toe. Dr. Poe made aware.
[2017-10-04] MEDS: Acetaminophen 500 MG Tablet 1000 MG PO (19:33)
--- NOTE | 2017-10-04 19:36 | ED.RN ---
DR. HERNANDEZ MADE AWARE OF PATIENT'S GREAT TOE WOUND. HE STATES HE HAS ALREADY LOOKED AT THIS. TYLENOL GIVEN.
--- NOTE | 2017-10-04 20:25 | ED.RN ---
DR. HERNANDEZ SAID IT IS OK TO APPLY AND BANDAID AND BACITRACIN TO PATIENTS RIGHT GREAT TOE PRIOR TO DISCHARGE. A COUPLE BANDAIDS AND TWO PACKS OF BACITRACIN GIVEN. MULTIPLE ATTEMPTS TO GET HIM A RIDE BACK TO [facility] VIA HIS GUARDIAN AND HIS SISTER WERE MADE BY THIS NURSE. PATIENT IS AWARE THAT I WAS UNABLE TO GET A HOLD OF ANYONE AT [facility]. HE VOICED HIS DISLIKE OF THE FACILITY AND A LADY NAMED JADE. HE WAS DISCHARGED TO THE WAITING ROOM TO TRY AND ATTEMPT TO CALL SOMEONE TO GIVE HIM A RIDE.
[2017-10-04 20:28] VITALS: RESP 18
== END 2017-10-04 20:28 | disposition home or self-care (01) ==
PROVIDERS: Emergency Provider Emergency Medicine; Family Provider Family Medicine; PCP Family Medicine
DX: F91.9 Conduct disorder, unspecified (principal); F32.9 Major depressive disorder, single episode, unspecified; Z87.820 Personal history of traumatic brain injury; Z87.891 Personal history of nicotine dependence; Z79.82 Long term (current) use of aspirin; Z79.899 Other long term (current) drug therapy
CPT/HCPCS: 80048; 80164; 80307; 80320; 85025; 99283; G0480